=== PATIENT | female | born 1995 | race Caucasian/White ===

== ENCOUNTER 2018-06-29 19:00 | Emergency (ER) | payer SELFPAY ==
[~2018-06-29] VITALS: Ht 170.2 cm; Wt 113.4 kg
[2018-06-29] MEDS ORDERED: AMOX500C2 PO (19:37)
--- NOTE | 2018-06-29 19:38 | ED Cough/URI ---
General Chief Complaint: Cough/Cold/Flu Symptoms Stated Complaint: CONGESTED,SORE THROAT,COUGH Source: patient Exam Limitations: no limitations History of Present Illness Date Seen by Provider: Jun 29, 2018 Time Seen by Provider: 19:33 Initial Comments Patient is a 22-year-old female who presents to the emergency room accompanied by her significant other with reports of cough, sore throat, congestion for one week. She reports taking Sudafed and DayQuil without relief. She denies any fevers, shortness of breath, chest pain. Timing/Duration: week Severity/Quality: mild, dry cough Associated Symptoms: cough, nasal congestion, sore throat Allergies and Home Medications Allergies Coded Allergies: No Known Drug Allergies (Unverified , 06/29/18) Home Medications No Active Prescriptions or Reported Meds Patient Home Medication List Home Medication List Reviewed: Yes Review of Systems Review of Systems Constitutional: no symptoms reported, see HPI EENTM: see HPI, nose congestion, throat pain All Other Systems Reviewed Negative Unless Noted: Yes Past [place]-Vqotif-Uwnjot Hx Past Med/Social Hx: Reviewed Nursing Past Med/Soc Hx Patient Social History Recent Foreign Travel: No Contact w/Someone Who Travel: No Family Medical History Reviewed Nursing Family Hx Physical Exam Capillary Refill : Height: '" Weight: lbs. oz. kg; BMI Method: General Appearance: WD/WN, no apparent distress Eyes: Bilateral Eye Normal Inspection, Bilateral Eye PERRL, Bilateral Eye EOMI HEENT: PERRL/EOMI, normal ENT inspection, TMs normal, pharyngeal erythema; No tonsillar exudate Neck: non-tender, full range of motion, supple, normal inspection, carotid bruit Respiratory: chest non-tender, lungs clear, normal breath sounds, no respiratory distress, no accessory muscle use, respiratory distress Cardiovascular: normal peripheral pulses, regular rate, rhythm, no edema, no gallop, no JVD, no murmur Neurologic/Psychiatric: alert, normal mood/affect, oriented x 3 Skin: normal color, warm/dry Progress/Results/Core Measures Suspected Sepsis SIRS Temperature: Pulse: Respiratory Rate: Blood Pressure / Mean: Results/Orders My Orders Orders - KEVIN BAE Influenza A And B Antigens (06/29/18 19:32) Rapid Strep A Screen (06/29/18 19:32) Vital Signs/I&O Capillary Refill : Departure Impression Primary Impression: Pharyngitis Additional Impression: Upper respiratory infection Disposition: HOME, SELF-CARE Condition: Stable/Unchanged Departure-Patient Inst. Decision time for Depature: 19:35 Patient Instructions: Cough, Runny Nose, and the Common Cold (DC), Strep Throat (DC) Add. Discharge Instructions: Take medication as directed. Tylenol and ibuprofen as needed for pain and fever. Drink plenty of clear liquids like water. Continue to use over-the- counter antitussives, throat lozenges, DayQuil/NyQuil for symptom treatment. Follow-up with her primary care provider within 1 week for recheck. Return back to the emergency room for any worsening symptoms or concerns as needed. All discharge instructions reviewed with patient and/or family. Voiced understanding. Scripts Amoxicillin (Amoxicillin) 500 Mg Capsule 500 MG PO BID for 10 Days, #20 CAP Prov: KEVIN BAE 06/29/18 KEVIN BAE Jun 29, 2018 19:38
--- OUTSIDE RECORDS SUMMARY | 2018-06-29 20:03 | XMS REPORT | Continuity of Care Document ---
Author Author Jazmyne Lizarraga [facility] Jazmyne Lizarraga [facility] Address Unknown Phone Unavailable Care Team Providers Care Fiscal Technician Name Role Phone THIERRY RUBY DO PCP Insurance Providers Guarantor Elsa Hoskins Address [address] [place] [address] Payer [facility] Policy Number [id number] Subscriber's Name Robert Hoskins Relationship 05 Step Father Group Number [id number] Group Name [facility] Chief Complaint and Reason for Visit Chief Complaint Fall Reason for Visit [id number] Problems Active Problems Medical Problem Onset Date Status Bronchitis Unknown Acute Chronic pain of left knee Unknown Acute Chronic pain of left knee Unknown Acute Conjunctivitis unspecified Unknown Acute Epigastric pain 04/28/2012 Chronic Ingrown left big toenail Unknown Acute Knee strain Unknown Acute Left knee sprain Unknown Acute Nausea and vomiting 04/28/2012 Chronic Pharyngitis Unknown Acute Rotator cuff tendonitis Unknown Acute Rotator cuff tendonitis Unknown Acute Shoulder pain Unknown Acute Urinary tract infection Unknown Acute otalgia Unknown Acute Past Problems Medical Problem Onset Date Benzodiazepine intoxication Unknown Benzodiazepine intoxication Unknown Dizziness Unknown Head injury, closed Unknown Toothache Unknown Medications Current Home Medications Medication Dose Units Route Directions Days Qty Instructions Start Date Albuterol (Ventolin Hfa) 108 Mcg/Act Aer 108 Mcg Inhalation As Needed for Asthma 06/23/16 Azithromycin 250 Mg Tab 0 Oral Daily for Bacterial Infection 6 Tablet 2 TABS ON DAY 1, THEN 1 TAB DAILY X 4 DAYS 06/23/16 Fexofenadine Hcl (Mary Anne) 180 Mg Tab 180 Mg Oral Daily for Allergies 10/25/14 Metformin Hcl 500 Mg Tab 500 Mg Oral Twice A Day 07/22/16 Sertraline Hcl (Zoloft) 50 Mg Tab 50 Mg Oral Daily 07/22/16 Past Home Medications Medication Directions Ordered Status Azithromycin (Zithromax) 250 Mg Tab, 250 Mg Oral Daily 09/20/11 Discontinued Cephalexin 500 Mg Tab, 500 Mg Oral Daily 05/18/12 Discontinued Cyclobenzaprine Hcl (Flexeril) 10 Mg Tab, 10 Mg Oral Three Times A Day As Needed 08/11/09 Discontinued Fluticasone Propionate (Flonase 0.05% Nasal [place]) 16 Gm Naspr, 2 [place] Nasal Daily for Rhinitis 06/23/16 Discontinued Phenazopyridine Hcl (Pyridium) 100 Mg Tab, 100 Mg Oral Three Times A Day Discontinued Prednisone 20 Mg Tab, 1 Tab Oral Qd 04/20/09 Discontinued Promethazine/Codeine (Phenergan W/Codeine) 120 Ml Syrp, 5-10 Ml Oral Every 6 Hours As Needed 10/16/13 Discontinued Tramadol Hcl (Ultram) 50 Mg Tab, 50 Mg Oral Every 6 Hours As Needed 08/11/09 Discontinued Family History Relationship Condition Age at Onset Recorded Date/Time 03 Mother Family history of asthma Not Recorded 06/23/2016 2:08pm 03 Mother Family history of hypertension Not Recorded 06/23/2016 2:08pm 03 Mother Family history of type 2 diabetes mellitus Not Recorded 2015 2:08pm Social History Social History Problem Response Recorded Date/Time Onset Date Status Hx Alcohol Use No 06/23/2016 2:09pm Not Applicable Not Applicable Hx Substance Use No 06/23/2016 2:09pm Not Applicable Not Applicable Smoking Status Never smoker 07/22/2016 7:10pm Not Applicable Not Applicable Query Response Start Date Stop Date Smoking Status Never smoker Hospital Discharge Instructions No hospital discharge instructions. Plan of Care Discharge Date 07/22/16 10:10pm Disposition 01 HOME, SELF-CARE Condition at Discharge Improved/Stable Instructions/Education Provided Minor Head Injury (ED) Prescriptions See Medication Section Referrals THIERRY RUBY DO Address: [address] [place] [address] Additional Instructions/Education Please see your doctor in 3-5 days if needed. Please return to ED right away if altered mental status, vomiting, any neuro deficits, or anything concerning. Functional Status No functional status results. Allergies, Adverse Reactions, Alerts No known allergies. Immunizations No immunization records. Vital Signs Acute Vital Signs Vital Response Date/Time Blood Pressure 144/85 mm Hg 07/22/2016 9:29pm Blood Pressure Mean 104 mm Hg 07/22/2016 9:29pm Temperature (Fahrenheit) 98.6 degrees F (96.0 - 99.9) 07/22/2016 7:11pm Temperature (Calculated Celsius) 37.43708 degrees C 07/22/2016 7:11pm Temperature (Calculated Celsius) 36.59310 degrees C (36.4 - 37.5) 06/23/2016 2:11pm Temperature (Fahrenheit) 98.0 degrees F (96.0 - 99.9) 06/23/2016 2:11pm Temperature Source Oral 07/22/2016 7:11pm Pulse Pulse Rate (adult) 115 bpm (60 - 100) 06/19/2016 11:54pm Pulse Rate (adult) 113 bpm (60 - 100) 06/23/2016 2:11pm Pulse Rate: ED 89 bpm 07/22/2016 9:29pm Respiratory Rate 16 breaths per minute (10 - 20) 07/22/2016 8:22pm Respiratory Rate 16 bpm (10 - 20) 06/23/2016 2:11pm Height (Feet) 5 ft 07/22/2016 7:11pm Height (Inches) 7.0 in. 07/22/2016 7:11pm Weight (Pounds) 225.0 lbs 07/22/2016 7:11pm Height 5 ft 7 in 07/22/2016 7:11pm Weight 225 lb 07/22/2016 7:11pm Body Mass Index 35.2 kg/m^2 07/22/2016 7:11pm Ambulatory Vital Signs Vital Response Date/Time Height 5 ft 8 in 06/01/2012 4:29pm Weight 189 lbs 06/01/2012 4:29pm Temperature, Oral 97.6 degrees F 06/01/2012 4:29pm Blood Pressure 96/66 mm Hg 06/01/2012 4:29pm Pulse Rate 78 bpm 06/01/2012 4:29pm Respiration Rate 12 bpm 06/01/2012 4:29pm Body Surface Area 2.05 m2 06/01/2012 4:29pm Body Mass Index 28.7 kg/m2 06/01/2012 4:29pm Pulse Oximetry Pulse Oximetry 06/01/2012 4:29pm Results Laboratory Results Test Name Result Units Flags Reference Collection Date/Time Result Date/ Time Comments Urine Human Chorionic Gonadotropin NEGATIVE NEGATIVE 06/20/2016 12: 46am 06/20/2016 1:13am Urine Amphetamines Screen Negative NEGATIVE 06/20/2016 12:46am 2015 1:13am Urine Methamphetamines Screen Negative NEGATIVE 06/20/2016 12:46am 1:13am Urine Barbiturates Screen Negative NEGATIVE 06/20/2016 12:46am 2015 1:13am Urine Benzodiazepines Screen Negative NEGATIVE 06/20/2016 12:46am 1:13am Urine Cocaine Screen Negative NEGATIVE 06/20/2016 12:46am 06/20/2016 1:13am Urine Methadone Screen Negative NEGATIVE 06/20/2016 12:46am 2015 1:13am Urine Opiates Screen Negative NEGATIVE 06/20/2016 12:46am 06/20/2016 1:13am Urine Phencyclidine Screen Negative NEGATIVE 06/20/2016 12:46am 06/20 1:13am Urine Propoxyphene Screen Negative NEGATIVE 06/20/2016 12:46am 2015 1:13am Ur Tetrahydrocannabinol (THC) Scrn Negative NEGATIVE 06/20/2016 12: 46am 06/20/2016 1:13am Ur Tricyclic Antidepressants Screen Negative NEGATIVE 06/20/2016 12: 46am 06/20/2016 1:13am Urine Color YELLOW 06/20/2016 5:50pm 06/20/2016 5:58pm Urine Appearance SL CLOUDY 06/20/2016 5:50pm 06/20/2016 5:58pm Urine Glucose (UA) NEGATIVE NEGATIVE 06/20/2016 5:50pm 06/20/2016 5: 58pm Urine Bilirubin NEGATIVE NEGATIVE 06/20/2016 5:50pm 06/20/2016 5: 58pm Urine Ketones NEGATIVE NEGATIVE 06/20/2016 5:50pm 06/20/2016 5:58pm Urine Specific [place] 1.020 1.005-1.030 06/20/2016 5:50pm 2015 5:58pm Urine Occult Blood NEGATIVE NEGATIVE 06/20/2016 5:50pm 06/20/2016 5: 58pm Urine pH 8.5 4.5-8.0 06/20/2016 5:50pm 06/20/2016 5:58pm Urine Protein NEGATIVE NEGATIVE 06/20/2016 5:50pm 06/20/2016 5:58pm Urine Urobilinogen 0.2 E.U./dL 0.2-1.0 06/20/2016 5:50pm 06/20/2016 5: 58pm Urine Nitrate NEGATIVE NEGATIVE 06/20/2016 5:50pm 06/20/2016 5:58pm Urine Leukocyte Esterase 1+ H NEGATIVE 06/20/2016 5:50pm 06/20/2016 5: 58pm Urine RBC 0-1 /hpf NONE 06/20/2016 5:50pm 06/20/2016 6:03pm Urine WBC 1-3 /hpf NONE 06/20/2016 5:50pm 06/20/2016 6:03pm Urine Epithelial Cells MANY /lpf 06/20/2016 5:50pm 06/20/2016 6:03pm Urine Bacteria 2+ /hpf H NONE 06/20/2016 5:50pm 06/20/2016 6:03pm THIS SPECIMEN MEETS MEDICAL STAFF CRITERIA FOR A URINE CULTURE. A CULTURE HAS BEEN SET. Urine Mucus TRACE /lpf NONE 06/20/2016 5:50pm 06/20/2016 6:03pm Microbiology Results Procedure Source Organism/Result Collection Date/Time Result Date/Time Result Status Urine Culture Urine,Clean Catch >100,000 CFU/ML MIXED BODY MYRIAM AFTER 2 DAYS 06/20/2016 5:50pm 06/22/2016 11:27am Final Procedures No known history of procedures. Encounters Encounter Location Arrival/Admit Date Discharge/Depart Date Attending Provider Departed Emergency Room [facility] 07/22/16 7:09pm 10:10pm DAISY TANG M.D. Departed Clinic [facility] 06/23/16 2:00pm 06/23/16 2: 35pm THERESA GOMEZ APRN Departed Emergency Room [facility] 06/20/16 4:52pm 6:49pm HEMANT BRUNSON D.O. Departed Emergency Room [facility] 06/19/16 11:39pm 2:33am ADDI WINTER M.D. Departed Emergency Room [facility] 02/02/16 11:44pm 12:26am DMITRY GUNN M.D. Registered Referred [facility] 01/30/15 11:50am RAH MONTE M.D. Departed Emergency Room [facility] 10/29/14 10:35am 11:51am BENJIE LOVELACE M.D. Departed Emergency Room [facility] 10/25/14 10:55pm 12:30am JAMES HERNANDEZ M.D. Departed Emergency Room [facility] 06/08/14 3:38am 4:15am OLIVER MAIN M.D. Registered Referred [facility] 02/12/14 6:55pm THIERRY RUBY DO Departed Emergency Room [facility] 02/08/14 1:06pm 2:06pm BENJIE LOVELACE M.D. Departed Emergency Room [facility] 02/07/14 12:37am 1:13am MARTÍN DORAN M.D. Discharged Recurring [facility] 01/25/14 1:18pm 03/14/14 11:59pm RAH MONTE M.D. Discharged Recurring [facility] 01/25/14 1:11pm 03/14/14 11:59pm RAH MONTE M.D. Recent Diagnosis
--- OUTSIDE RECORDS SUMMARY | 2018-06-29 20:04 | XMS REPORT | Continuity of Care Document ---
Author Author Jazmyne Lizarraga [facility] Jazmyne Lizarraga [facility] Address Unknown Phone Unavailable Care Team Providers Care Regional Marketing Manager Name Role Phone THIERRY GLEASON DO PCP Insurance Providers Guarantor Elsa Hoskins Address [address] [place] [address] Payer [facility] Policy Number [id number] Subscriber's Name Robert Hoskins Relationship 05 Step Father Group Number [id number] Group Name [facility] Problems Active Problems Medical Problem Onset Date [...] Mcg Inhalation As Needed for Asthma 06/23/16 Metformin Hcl 500 Mg Tab 500 Mg Oral Twice A Day 07/22/16 Ondansetron (Zofran Odt) 4 Mg Tab 4 Mg Oral Every 6 Hours as needed for Nausea 15 Tablet 08/09/16 Sertraline Hcl (Zoloft) 50 Mg Tab 50 Mg Oral Daily 07/22/16 Past Home Medications Medication Directions Ordered Status Azithromycin 250 Mg Tab, 0 Oral Daily for Bacterial Infection 06/23/16 Discontinued Azithromycin (Zithromax) 250 Mg Tab, 250 Mg Oral Daily 09/20/11 Discontinued Cephalexin 500 Mg Tab, 500 Mg Oral Daily 05/18/12 Discontinued Cyclobenzaprine Hcl (Flexeril) 10 Mg Tab, 10 Mg Oral Three Times A Day As Needed 08/11/09 Discontinued Fexofenadine Hcl (Mary Anne) 180 Mg Tab, 180 Mg Oral Daily for Allergies Discontinued Fluticasone Propionate (Flonase 0.05% Nasal [place]) 16 Gm Naspr, 2 [place] Nasal Daily for Rhinitis 06/23/16 Discontinued Phenazopyridine [...] Onset Date Status Hx Alcohol Use No 08/09/2016 11:16am Not Applicable Not Applicable Hx Substance Use No 08/09/2016 11:16am Not Applicable Not Applicable Smoking Status Never smoker 08/09/2016 11:16am Not Applicable Not Applicable Query Response Start Date Stop Date Smoking Status Never smoker Hospital Discharge Instructions Discharge Instructions Provider Instructions 1. Sips of fluid and chips of ice, popsicles, Gatorade, Viktor Aid, Jello. No big drinks but sip to keep hydrated and enough to keep urine clear. 2. Take nausea medication as prescribed. 3. Rest in a cool room. 4. [place] diet, No fatty, greasy, spicy or hard to digest foods. 5. If you develop blood in your vomit or worsening pain please seek emergent care. 5. If symptoms worsen or do not resolve by mid week, please follow up with primary care provider for further evaluation. Dismiss home You were seen today by PURVI GROVE APRN Follow up with Primary Care Physician in 3-7 days PCP Information Thierry Gleason DO [address] [place] [address] Plan(s) based on screenings Calculated Body Mass Index: 38.10 BMI Follow-up plan: BMI is above normal, follow-up with Primary Care Provider Blood Pressure #1 Blood Pressure Systolic: 142 mm Hg Blood Pressure Diastolic: 92 mm Hg Preventative Blood Pressure Follow-up plan: BP is Hypertensive, follow-up with Primary Care Provider Plan of Care Discharge Date 08/09/16 11:57am Instructions/Education Provided Acute Nausea and Vomiting (ED) Prescriptions See Medication Section Functional Status No functional status results. Allergies, Adverse Reactions, Alerts No known allergies. Immunizations No immunization records. Vital Signs Acute Vital Signs Vital Response Date/Time Blood Pressure 142/92 mm Hg 08/09/2016 11:17am Blood Pressure Mean 109 mm Hg 08/09/2016 11:17am Temperature (Fahrenheit) 98.6 degrees F (96.0 - 99.9) 07/22/2016 7:11pm Temperature (Calculated Celsius) 37.71747 degrees C 07/22/2016 7:11pm Temperature (Calculated Celsius) 36.22486 degrees C (36.4 - 37.5) 08/09/2016 11:17am Temperature (Fahrenheit) 97.9 degrees F (96.0 - 99.9) 08/09/2016 11:17am Temperature Source Oral 07/22/2016 7:11pm Pulse Pulse Rate (adult) 115 bpm (60 - 100) 06/19/2016 11:54pm Pulse Rate (adult) 86 bpm (60 - 100) 08/09/2016 11:17am Pulse Rate: ED 89 bpm 07/22/2016 9:29pm Respiratory Rate 16 breaths per minute (10 - 20) 07/22/2016 8:22pm Respiratory Rate 12 bpm (10 - 20) 08/09/2016 11:17am Height (Feet) 5 ft 08/09/2016 11:17am Height (Inches) 7.0 in. 08/09/2016 11:17am Weight (Pounds) 242.8 lbs 08/09/2016 11:17am Height 5 ft 7 in 08/09/2016 11:17am Weight 242.80 lb 08/09/2016 11:17am Body Mass Index 38.0 kg/m^2 08/09/2016 11:17am Ambulatory Vital Signs Vital Response Date/Time Height [...] NEGATIVE 06/20/2016 5:50pm 06/20/2016 5:58pm Urine Specific [place] 1.020 1.005-1.030 06/20/2016 5:50pm 2015 5:58pm Urine [...] Arrival/Admit Date Discharge/Depart Date Attending Provider Departed Clinic [facility] 08/09/16 10:42am 08/09/16 11: 57am PURVI GROVE APPLE Departed Emergency Room [facility] 07/22/16 7:09pm 10:10pm DAISY TANG M.D. Departed Clinic [facility] 06/23/16 2:00pm 06/23/16 2: 35pm THERESA GOMEZ APRN Departed Emergency Room [facility] 06/20/16 4:52pm 6:49pm HEMANT BRUNSON D.O. Departed Emergency Room [facility] 06/19/16 11:39pm 2:33am ADDI WINTER M.D. Departed Emergency Room [facility] 02/02/16 11:44pm 12:26am DMITRY GUNN M.D. Registered Referred [facility] 01/30/15 11:50am RAH MONTE M.D. Departed Emergency Room [facility] 10/29/14 10:35am 11:51am BENJIE LOVELACE M.D. Departed Emergency Room [facility] 10/25/14 10:55pm 12:30am JAMES HERNANDEZ M.D. Departed Emergency Room [facility] 06/08/14 3:38am 4:15am OLIVER MAIN M.D. Registered Referred [facility] 02/12/14 6:55pm THIERRY GLEASON DO Departed Emergency Room [facility] 02/08/14 1:06pm 2:06pm BENJIE LOVELACE M.D. Departed Emergency Room [facility] 02/07/14 12:37am 1:13am MARTÍN DORAN M.D. Discharged [facility] 01/25/14 1:18pm 03/14/14 11:59pm RAH MONTE M.D. Discharged Rec[facility]ring [facility] 01/25/14 1:11pm 03/14/14 11:59pm RAH MONTE M.D.
--- OUTSIDE RECORDS SUMMARY | 2018-06-29 20:04 | XMS REPORT | Continuity of Care Document ---
Author Author Jazmyne Lizarraga [facility] Jazmyne Lizarraga [facility] Address Unknown Phone Unavailable Care Team Providers Care [place] Nurse Name Role Phone THIERRY RUBY DO PCP Insurance Providers Guarantor Elsa Hoskins Address [address] [place] [address] Payer [employer] Policy Number [id number] Subscriber's Name Robert Hoskins Relationship 03 Father Group Number [id number] Group Name [facility] Chief Complaint and Reason for Visit Chief Complaint Medical Problem Minor Reason for Visit Benzodiazepine intoxication Problems Active Problems Medical Problem Onset Date [...] Medical Problem Onset Date Benzodiazepine intoxication Unknown Toothache Unknown Medications Current Home Medications Medication Dose Units Route Directions Days Qty Instructions Start Date Fexofenadine Hcl (Mary Anne) 180 Mg Tab 180 Mg Oral Daily 10/25/14 Meloxicam (Mobic) 15 Mg Tab 15 Mg Oral Daily 06/08/14 Past Home Medications Medication Directions Ordered Status Azithromycin (Zithromax) 250 Mg Tab, 250 Mg Oral Daily 09/20/11 Discontinued Cephalexin 500 Mg Tab, 500 Mg Oral Daily 05/18/12 Discontinued Cyclobenzaprine Hcl (Flexeril) 10 Mg Tab, 10 Mg Oral Three Times A Day As Needed 08/11/09 Discontinued Phenazopyridine Hcl (Pyridium) 100 Mg Tab, 100 Mg Oral Three Times A Day Discontinued Prednisone 20 Mg Tab, 1 Tab Oral Qd 04/20/09 Discontinued Promethazine/Codeine (Phenergan W/Codeine) 120 Ml Syrp, 5-10 Ml Oral Every 6 Hours As Needed 10/16/13 Discontinued Tramadol Hcl (Ultram) 50 Mg Tab, 50 Mg Oral Every 6 Hours As Needed 08/11/09 Discontinued Social History Social History Problem Response Recorded Date/Time Onset Date Status Hx Alcohol Use No 05/17/2012 1:43pm Not Applicable Not Applicable Hx Substance Use No 05/17/2012 1:43pm Not Applicable Not Applicable Smoking Status Never smoker 06/19/2016 11:45pm Not Applicable Not Applicable Query Response Start Date Stop Date Smoking Status Never smoker Hospital Discharge Instructions No hospital discharge instructions. Plan of Care Discharge Date 06/20/16 2:33am Disposition 01 HOME, SELF-CARE Condition at Discharge Stable Instructions/Education Provided Benzodiazepine Abuse (ED) Generalized Anxiety Disorder (ED) Prescriptions See Medication Section Referrals THIERRY RUBY DO Address: [address] [place] [address] Additional Instructions/Education 1. Followup at [facility]. Call for an appointment on Tuesday morning. 2. Return to ER if any worsening symptoms, any recurrence of suicidal thoughts or ideation, any other concerns. 3. Avoid use of medications which are not prescribed to you. Functional Status No functional status results. Allergies, Adverse Reactions, Alerts No known allergies. Immunizations No immunization records. Vital Signs Acute Vital Signs Vital Response Date/Time Blood Pressure 99/71 mm Hg 06/20/2016 2:23am Blood Pressure Mean 80 mm Hg 06/20/2016 2:23am Temperature (Fahrenheit) 98.5 degrees F (96.0 - 99.9) 06/19/2016 11:39pm Temperature (Calculated Celsius) 36.89919 degrees C 06/19/2016 11:39pm Temperature Source Oral 06/19/2016 11:39pm Pulse Pulse Rate (adult) 115 bpm (60 - 100) 06/19/2016 11:54pm Pulse Rate: ED 74 bpm 06/20/2016 2:23am Respiratory Rate 16 breaths per minute (10 - 20) 06/20/2016 2:23am Height (Feet) 5 ft 06/19/2016 11:39pm Height (Inches) 7.0 in. 06/19/2016 11:39pm Weight (Pounds) 256.0 lbs 06/19/2016 11:39pm Height 5 ft 7 in 06/19/2016 11:39pm Weight 256 lb 06/19/2016 11:39pm Body Mass Index 40.1 kg/m^2 06/19/2016 11:39pm Ambulatory Vital Signs Vital Response Date/Time Height [...] Negative NEGATIVE 06/20/2016 12: 46am 06/20/2016 1:13am Procedures No known history of procedures. Encounters Encounter Location Arrival/Admit Date Discharge/Depart Date Attending Provider Departed Emergency Room [facility] 06/19/16 11:39pm 2:33am ADDI WINTER M.D. Departed Emergency Room [facility] 02/02/16 11:44pm 12:26am DMITRY GUNN M.D. Registered Referred [facility] 01/30/15 11:50am RAH MONTE M.D. Departed Emergency Room [facility] 10/29/14 10:35am 11:51am BENJIE LOVELACE M.D. Departed Emergency Room [facility] 10/25/14 10:55pm 12:30am JAMES HERNANDEZ M.D. Departed Emergency Room [facility] 06/08/14 3:38am 4:15am OLIVER MAIN M.D. Registered Referred [facility] 02/12/14 6:55pm THIERRY RUBY DO Departed Emergency Room [facility] 02/08/14 1:06pm 2:06pm BENJIE LOVLEACE M.D. Departed Emergency Room [facility] 02/07/14 12:37am 1:13am MARTÍN DORAN M.D. Discharged Recurring [facility] 01/25/14 1:18pm 03/14/14 11:59pm RAH MONTE M.D. Discharged Recurring [facility] 01/25/14 1:11pm 08/07/14 11:59pm RAH MONTE M.D. Departed Emergency Room [facility] 10/16/13 2:52pm 3:55pm OLIVER MAIN M.D. [facility] 10/13/13 7:32pm 8:03pm JAMES HERNANDEZ M.D. Recent Diagnosis
--- OUTSIDE RECORDS SUMMARY | 2018-06-29 20:04 | XMS REPORT | Continuity of Care Document ---
Author Author Jazmyne Lizarraga [facility] Jazmyne Lizarraga [facility] Address Unknown Phone Unavailable Care Team Providers Care Technology Methodology Consultant Name Role Phone THIERRY GLEASON DO PCP Insurance Providers Guarantor Elsa Hoskins Address [address] [place] [address] Payer [facility] Policy Number [id number] Subscriber's Name Robert Hoskins Relationship 05 Step Father Group Number [id number] Group Name [facility] Problems Active Problems Medical Problem Onset Date [...] intoxication Unknown Benzodiazepine intoxication Unknown Dizziness Unknown Toothache Unknown Medications Current Home Medications Medication Dose Units Route Directions Days Qty Instructions Start Date Albuterol (Ventolin Hfa) 108 Mcg/Act Aer 108 Mcg Inhalation As Needed for Asthma 06/23/16 Azithromycin 250 Mg Tab 0 Oral Daily for Bacterial Infection 6 Tablet 2 TABS ON DAY 1, THEN 1 TAB DAILY X 4 DAYS 06/23/16 Benzonatate (Tessalon Perles) 100 Mg Cap 100 Mg Oral Three Times A Day for Cough 15 Capsule 06/23/16 Fexofenadine Hcl (Mary Anne) 180 Mg Tab 180 Mg Oral Daily for Allergies 10/25/14 Fluticasone Propionate (Flonase 0.05% Nasal [place]) 16 Gm Naspr 2 [place] Nasal Daily for Rhinitis 14 Days 1 Btl 06/23/16 Meloxicam (Mobic) 15 Mg Tab 15 Mg Oral Daily for Knee Pain Past Home Medications Medication Directions Ordered Status [...] Applicable Not Applicable Smoking Status Never smoker 06/23/2016 2:09pm Not Applicable Not Applicable Query Response Start Date Stop Date Smoking Status Never smoker Hospital Discharge Instructions Discharge Instructions Provider Instructions Dismiss home You were seen today by THERESA GOMEZ APRN 1. Drink plenty of fluids. 2. If symptoms are no better by Tuesday or Tuesday start taking antibiotic and complete entire course. 3. Tessalon Perles up to 3 times a day for cough 4. Humidifier at bedside may be beneficial. 5. Tylenol or Motrin as needed for discomfort, use as directed. 6. Suggest taking Claritin-D to help dry up secretions. PCP Information Thierry Gleason DO [address] [place] [address] Plan(s) based on screenings Calculated Body Mass Index: 40.66 BMI Follow-up plan: BMI is above normal, follow-up with Primary Care Provider Blood Pressure #1 Blood Pressure Systolic: 118 mm Hg Blood Pressure Diastolic: 82 mm Hg Preventative Blood Pressure Follow-up plan: BP is Pre-Hypertensive, follow-up with Primary Care Provider Plan of Care Discharge Date 06/23/16 2:35pm Instructions/Education Provided Acute Bronchitis (ED) Prescriptions See Medication Section Functional Status No functional status results. Allergies, Adverse Reactions, Alerts No known allergies. Immunizations No immunization records. Vital Signs Acute Vital Signs Vital Response Date/Time Blood Pressure 118/82 mm Hg 06/23/2016 2:11pm Blood Pressure Mean 94 mm Hg 06/23/2016 2:11pm Temperature (Fahrenheit) 98.1 degrees F (96.0 - 99.9) 06/20/2016 4:53pm Temperature (Calculated Celsius) 36.16639 degrees C 06/20/2016 4:53pm Temperature (Calculated Celsius) 36.76391 degrees C (36.4 - 37.5) 06/23/2016 2:11pm Temperature (Fahrenheit) 98.0 degrees F (96.0 - 99.9) 06/23/2016 2:11pm Temperature Source Oral 06/20/2016 4:53pm Pulse Pulse Rate (adult) 115 bpm (60 - 100) 06/19/2016 11:54pm Pulse Rate (adult) 113 bpm (60 - 100) 06/23/2016 2:11pm Pulse Rate: ED 86 bpm 06/20/2016 6:49pm Respiratory Rate 18 breaths per minute (10 - 20) 06/20/2016 6:08pm Respiratory Rate 16 bpm (10 - 20) 06/23/2016 2:11pm Height (Feet) 5 ft 06/23/2016 2:11pm Height (Inches) 7.1 in. 06/23/2016 2:11pm Weight (Pounds) 260.0 lbs 06/23/2016 2:11pm Height 5 ft 7.1 in 06/23/2016 2:11pm Weight 260 lb 06/23/2016 2:11pm Body Mass Index 40.6 kg/m^2 06/23/2016 2:11pm Ambulatory Vital Signs Vital Response Date/Time Height [...] NEGATIVE 06/20/2016 5:50pm 06/20/2016 5:58pm Urine Specific [place] 1.020 1.005-1.030 06/20/2016 5:50pm 2015 5:58pm Urine [...] Date Discharge/Depart Date Attending Provider Departed Clinic [facility] 06/23/16 2:00pm 06/23/16 2: 35pm THERESA GOMEZ APRN Departed Emergency Room [facility] 06/20/16 4:52pm 6:49pm HEMANT BRUNSON D.O. Departed Emergency Room [facility] 06/19/16 11:39pm 2:33am ADDI WINTER M.D. Departed Emergency Room [facility] 02/02/16 11:44pm 12:26am DMITRY GUNN M.D. Registered Referred [facility]. [facility] 01/30/15 11:50am RAH MONTE M.D. Departed Emergency Room [facility] 10/29/14 10:35am 11:51am BENJIE LOVELACE M.D. Departed Emergency Room [facility] 10/25/14 10:55pm 12:30am JAMES HERNANDEZ M.D. Departed Emergency Room [facility] 06/08/14 3:38am 4:15am OLIVER MAIN M.D. Registered Referred [facility] 02/12/14 6:55pm THIERRY GLEASON DO Departed Emergency Room [facility] 02/08/14 1:06pm 2:06pm BENJIE LOVELACE M.D. Departed Emergency Room [facility] 02/07/14 12:37am 1:13am MARTÍN DORAN M.D. Discharged Recurring [facility] 01/25/14 1:18pm 03/14/14 11:59pm RAH MONTE M.D. Discharged Recurring [facility] 01/25/14 1:11pm 03/14/14 11:59pm RAH MONTE M.D. Departed Emergency Room [facility] 10/16/13 2:52pm 3:55pm OLIVER MAIN M.D. Departed Emergency Room Jazmyne Lizarraga [facility] 10/13/13 7:32pm 8:03pm JAMES HERNANDEZ M.D.
--- OUTSIDE RECORDS SUMMARY | 2018-06-29 20:04 | XMS REPORT | Continuity of Care Document ---
Author Author Jazmyne Lizarraga [facility] Jazmyne Lizarraga [facility] Address Unknown Phone Unavailable Care Team Providers Care Amplifier Mechanic Name Role Phone THIERRY RUBY DO PCP Insurance Providers Guarantor Elsa Hoskins Address [address] [place] [address] Payer Self Pay Insurance Subscriber's Name Elsa Hoskins Relationship 01 Self / Same As Patient Chief Complaint and Reason for Visit Chief Complaint Dizziness Reason for Visit Dizziness Benzodiazepine intoxication Problems Active Problems Medical Problem [...] Applicable Not Applicable Smoking Status Never smoker 06/20/2016 4:57pm Not Applicable Not Applicable Query Response Start Date Stop Date Smoking Status Never smoker Hospital Discharge Instructions No hospital discharge instructions. Plan of Care Discharge Date 06/20/16 6:49pm Disposition 01 HOME, SELF-CARE Condition at Discharge Stable Instructions/Education Provided Vertigo (ED) Prescriptions See Medication Section Referrals THIERRY RUBY DO Address: [address] [id number] Additional Instructions/Education Followup with [facility] in [place]. Call for appointment. [phone] Return to ER if worsening symptoms, other new concerns. Take your medications only as prescribed. Rest and drink plenty of fluids Functional Status No functional status results. Allergies, Adverse Reactions, Alerts No known allergies. Immunizations No immunization records. Vital Signs Acute Vital Signs Vital Response Date/Time Blood Pressure 107/69 mm Hg 06/20/2016 6:49pm Blood Pressure Mean 82 mm Hg 06/20/2016 6:49pm Temperature (Fahrenheit) 98.1 degrees F (96.0 - 99.9) 06/20/2016 4:53pm Temperature (Calculated Celsius) 36.77634 degrees C 06/20/2016 4:53pm Temperature Source Oral 06/20/2016 4:53pm Pulse Pulse Rate (adult) 115 bpm (60 - 100) 06/19/2016 11:54pm Pulse Rate: ED 86 bpm 06/20/2016 6:49pm Respiratory Rate 18 breaths per minute (10 - 20) 06/20/2016 6:08pm Height (Feet) 5 ft 06/20/2016 4:53pm Height (Inches) 7.0 in. 06/20/2016 4:53pm Weight (Pounds) 255.0 lbs 06/20/2016 4:53pm Height 5 ft 7 in 06/20/2016 4:53pm Weight 255 lb 06/20/2016 4:53pm Body Mass Index 39.9 kg/m^2 06/20/2016 4:53pm Ambulatory Vital Signs Vital Response Date/Time Height [...] NEGATIVE 06/20/2016 5:50pm 06/20/2016 5:58pm Urine Specific [place] 1.020 1.005-1.030 06/20/2016 5:50pm 2015 5:58pm Urine [...] TRACE /lpf NONE 06/20/2016 5:50pm 06/20/2016 6:03pm Procedures No known history of procedures. Encounters Encounter Location Arrival/Admit Date Discharge/Depart Date Attending Provider Departed Emergency Room [facility] 06/20/16 4:52pm 6:49pm HEMANT BRUNSON D.O. Departed Emergency Room [facility] 06/19/16 11:39pm 2:33am ADDI WINTER M.D. Departed Emergency Room [facility] 02/02/16 11:44pm 12:26am DMITRY GUNN M.D. Registered Referred [facility] 01/30/15 11:50am RAH MONTE M.D. Departed Emergency Room [facility] 10/29/14 10:35am 11:51am BENJIE LOVELACE M.D. Departed Emergency Room [facility] 10/25/14 10:55pm 12:30am JAMES HERNANDEZ M.D. Departed Emergency Room [facility] 06/08/14 3:38am 4:15am OLIVER MAIN M.D. Registered Referred [facility] 02/12/14 6:55pm THIERRY RUBY DO Departed Emergency Room [facility] 02/08/14 1:06pm 2:06pm BENJIE LOVELACE M.D. Departed Emergency Room [facility] 02/07/14 12:37am 1:13am MARTÍN DORAN M.D. Discharged Recurring [facility] 01/25/14 1:18pm 03/14/14 11:59pm RAH MONTE M.D. Discharged Recurring [facility] 01/25/14 1:11pm 03/14/14 11:59pm RAH MONTE M.D. Departed Emergency Room [facility] 10/16/13 2:52pm 3:55pm OLIVER MAIN M.D. Departed Emergency Room [facility] 10/13/13 7:32pm 8:03pm JAMES HERNANDEZ M.D. Recent Diagnosis Dizziness
--- OUTSIDE RECORDS SUMMARY | 2018-06-29 20:05 | XMS REPORT | Continuity of Care Document ---
Author Author Jazmyne Lizarraga [facility] Jazmyne Lizarraga [facility] Address Unknown Phone Unavailable Care Team Providers Care Knuckle Bender Name Role Phone THIERRY RUBY DO PCP Insurance Providers Payer Name Policy Number Subscriber Name Relationship Providers Care Network [id number] GatoRobert mathur 03 Father Chief Complaint and Reason for Visit Chief Complaint Arm Pain Reason for Visit [id number] Problems Medical Problems Problem Onset Date Status Epigastric pain 04/28/2012 Active Nausea and vomiting 04/28/2012 Active Urinary tract infection Unknown Active Pharyngitis Unknown Active otalgia Unknown Active Conjunctivitis unspecified Unknown Active Bronchitis Unknown Active Shoulder pain Unknown Active Rotator cuff tendonitis Unknown Active Medications Medication Dose Route Sig Days/Qty Instructions Order Date Discontinued Date Status Prednisone 1 Tab PO QD 4 Qty 04/20/09 04/28/12 Discontinued Tramadol Hcl 50 Mg PO Every 6 hours as needed 10 Qty FOR PAIN 08/11/09 04/28/12 Discontinued Cyclobenzaprine Hcl 10 Mg PO Three times a day as needed 15 Qty 04/28/12 Discontinued Azithromycin 250 Mg PO DAILY 4 Days 09/20/11 04/28/12 Discontinued Loratadine 5 Mg PO 05/17/12 Active Levonorgestrel & Eth Estradiol 1 X PO 05/17/12 Active Cephalexin 500 Mg PO DAILY 05/18/12 06/01/12 Discontinued Trazodone Hcl 150 Mg PO NEEDED 08/06/13 Active Phenazopyridine Hcl 100 Mg PO THREE TIMES A DAY 3 Days 07/23/13 Discontinued Fluticasone Propionate 2 Spy NA DAILY 1 Qty 09/07/13 Active Ibuprofen 600 Mg PO Every 6 hours as needed 20 Qty 09/07/13 Active Promethazine/Codeine 5-10 Ml PO Every 6 hours as needed 3 Days 10/20/13 Discontinued Metformin Hcl 500 Mg PO TWICE A DAY 02/07/14 Active Ibuprofen 800 Mg PO THREE TIMES A DAY 10 Qty 02/07/14 Active Oxycodone/Acetaminophen 1 Tab PO Q6H PRN 12 Qty 02/08/14 Active Cyclobenzaprine Hcl 10 Mg PO THREE TIMES A DAY 15 Qty 02/08/14 Active Social History Social History Problem Response Recorded Date/Time Hx Alcohol Use No 05/17/2012 1:43pm Hx Substance Use No 05/17/2012 1:43pm Smoking Status Never smoker 02/08/2014 1:08pm Query Response Start Date Stop Date Smoking Status Never smoker Hospital Discharge Instructions No hospital discharge instructions. Plan of Care Discharge Date 02/08/14 2:06pm Disposition 01 HOME, SELF-CARE Condition at Discharge Stable Instructions/Education Provided Rotator Cuff Tendinitis (ED) Prescriptions See Medications Section Follow-up Orders Gallbladder Sonogram Referrals THIERRY RUBY DO Functional Status No functional status results. Allergies, Adverse Reactions, Alerts Allergen Type Severity Reaction Status Last Updated No Known Allergies Active 02/07/14 Immunizations No immunization records. Vital Signs Acute Vital Signs Vital Response Date/Time Blood Pressure 119/93 mm Hg 02/08/2014 2:05pm Blood Pressure Mean 102 mm Hg 02/08/2014 2:05pm Temperature Source 02/08/2014 2:05pm Pulse 02/08/2014 2:05pm Pulse Rate: ED 104 bpm 02/08/2014 2:05pm Respiratory Rate 16 breaths per minute (10 - 20) 02/08/2014 2:05pm Ambulatory Vital Signs Vital Response Date/Time Height 5 ft 8 in 06/01/2012 4:29pm Weight 189 lbs 06/01/2012 4:29pm Temperature, Oral 97.6 degrees F 06/01/2012 4:29pm Blood Pressure 96/66 mm Hg 06/01/2012 4:29pm Pulse Rate 78 bpm 06/01/2012 4:29pm Respiration Rate 12 bpm 06/01/2012 4:29pm Body Surface Area 2.05 m2 06/01/2012 4:29pm Body Mass Index 28.7 kg/m2 06/01/2012 4:29pm Results Test Source Date Result Interp. Ref. Range Comments Vaginitis Screen Culture Cervix March 16, 2013 2:55am Group A Streptococcus Screen (SUZANNA) Throat March 07, 2013 7:38pm Urine Culture Urine,Clean Catch July 23, 2013 12:30am Procedures Procedure Status Date Provider(s) THER/PROPH/DIAG INJ IV PUSH completed 03/13/13 DAMON BERNAL DO THER/PROPH/DIAG IV INF INIT completed 03/15/13 BENJIE LOVELACE M.D. TX/PRO/DX INJ NEW DRUG ADDON completed 03/15/13 BENJIE LOVELACE M.D. Encounters Encounter Location Date/Time Departed Emergency Room [facility] 02/08/14 1:06pm Departed Emergency Room [facility] 02/07/14 12:37am Registered Recurring [facility] 01/28/14 3:07pm Registered Recurring [facility] 01/28/14 3:07pm Departed Emergency Room [facility] 10/16/13 2:52pm Departed Emergency Room [facility] 10/13/13 7:32pm Departed Emergency Room [facility] 09/07/13 9:10am Departed Emergency Room [facility] 07/23/13 12:09am Departed Emergency Room [facility] 03/15/13 11:36pm Departed Emergency Room [facility] 03/14/13 12:58am Departed Emergency Room [facility] 03/13/13 4:24am Recent Diagnosis
--- OUTSIDE RECORDS SUMMARY | 2018-06-29 20:05 | XMS REPORT | Continuity of Care Document ---
Author Author Jazmyne Lizarraga [facility] Jazmyne Lizarraga [facility] Address Unknown Phone Unavailable Care Team Providers Care Hardware Press Operator Name Role Phone THIERRY RUBY DO PCP Insurance Providers Guarantor Elsa Hoskins Address [address] [place] [address] Payer Other1 Policy Number [id number] Subscriber's Name Robert Hoskins Relationship 03 Father Group Number [id number] Group Name [facility] Chief Complaint and Reason for Visit Chief Complaint Facial Pain Reason for Visit Toothache Problems Active Problems Medical Problem Onset Date [...] Acute Past Problems Medical Problem Onset Date Toothache Unknown Medications Current Home Medications Medication Dose Units Route Directions Days Qty Instructions Start Date Amoxicillin/Clavulanate Potas (Augmentin 875 Mg) 875 Mg Tab 875 Mg Oral Twice A Day for Bacterial Infection 14 Tablet 02/03/16 Fexofenadine Hcl (Mary Anne) 180 Mg Tab 180 Mg Oral Daily 10/25/14 Levonorgestrel & Eth Estradiol (Aviane) Tab 1 X Oral 05/17/12 Meloxicam (Mobic) 15 Mg Tab 15 Mg Oral Daily 06/08/14 Oxycodone/Acetaminophen (Percocet 5/325) 1 Tab/1 Un Tab 1-2 Ea Oral Q4- 6HRPRN as needed for Pain 15 Tablet 02/03/16 Past Home Medications Medication Directions Ordered Status [...] Applicable Not Applicable Smoking Status Never smoker 02/02/2016 11:48pm Not Applicable Not Applicable Query Response Start Date Stop Date Smoking Status Never smoker Hospital Discharge Instructions No hospital discharge instructions. Plan of Care Discharge Date 02/03/16 12:26am Disposition 01 HOME, SELF-CARE Condition at Discharge Stable Instructions/Education Provided Dental Caries (ED) Prescriptions See Medication Section Referrals THIERRY RUBY DO Address: [address] [address] Additional Instructions/Education take meds call dental school or oral surgeon for follow up Functional Status No functional status results. Allergies, Adverse Reactions, Alerts No known allergies. Immunizations No immunization records. Vital Signs Acute Vital Signs Vital Response Date/Time Blood Pressure 132/86 mm Hg 02/02/2016 11:45pm Blood Pressure Mean 101 mm Hg 02/02/2016 11:45pm Temperature (Fahrenheit) 97.7 degrees F (96.0 - 99.9) 02/02/2016 11:45pm Temperature (Calculated Celsius) 36.43089 degrees C 02/02/2016 11:45pm Temperature Source Oral 02/02/2016 11:45pm Pulse Pulse Rate: ED 81 bpm 02/02/2016 11:45pm Respiratory Rate 16 breaths per minute (10 - 20) 10/29/2014 11:50am Height (Feet) 5 ft 02/02/2016 11:45pm Height (Inches) 7.0 in. 02/02/2016 11:45pm Weight (Pounds) 250.0 lbs 02/02/2016 11:45pm Height 5 ft 7 in 02/02/2016 11:45pm Weight 250 lb 02/02/2016 11:45pm Body Mass Index 39.2 kg/m^2 02/02/2016 11:45pm Ambulatory Vital Signs Vital Response Date/Time Height [...] Collection Date/Time Result Date/ Time Comments Urine Color YELLOW 07/23/2013 12:30am 07/23/2013 12:58am Urine Appearance CLOUDY 07/23/2013 12:30am 07/23/2013 12:58am Urine Glucose (UA) NEGATIVE NEGATIVE 07/23/2013 12:30am 07/23/2013 12 :58am Urine Bilirubin NEGATIVE NEGATIVE 07/23/2013 12:30am 07/23/2013 12: 58am Urine Ketones NEGATIVE NEGATIVE 07/23/2013 12:30am 07/23/2013 12: 58am Urine Specific [place] 1.025 1.005-1.030 07/23/2013 12:30am 2012 12:58am Urine Occult Blood NEGATIVE NEGATIVE 07/23/2013 12:30am 07/23/2013 12 :58am Urine pH 6.0 4.5-8.0 07/23/2013 12:30am 07/23/2013 12:58am Urine Protein NEGATIVE NEGATIVE 07/23/2013 12:30am 07/23/2013 12: 58am Urine Urobilinogen 0.2 E.U./dL 0.2-1.0 07/23/2013 12:30am 07/23/2013 12 :58am Urine Nitrate NEGATIVE NEGATIVE 07/23/2013 12:30am 07/23/2013 12: 58am Urine Leukocyte Esterase 1+ H NEGATIVE 07/23/2013 12:30am 07/23/2013 12:58am Urine RBC NONE /hpf NONE 07/23/2013 12:30am 07/23/2013 1:05am Urine WBC 10-25 /hpf H NONE 07/23/2013 12:30am 07/23/2013 1:05am THIS SPECIMEN MEETS MEDICAL STAFF CRITERIA FOR A URINE CULTURE. A CULTURE HAS BEEN SET. Urine WBC Clumps NONE /hpf NONE 07/23/2013 12:30am 07/23/2013 1:05am Urine Epithelial Cells MODERATE /lpf 07/23/2013 12:30am 07/23/2013 1: 05am Urine Bacteria 1+ /hpf H NONE 07/23/2013 12:30am 07/23/2013 1:05am Urine Human Chorionic Gonadotropin NEGATIVE NEGATIVE 07/23/2013 12: 30am 07/23/2013 12:59am Procedures No known history of procedures. Encounters Encounter Location Arrival/Admit Date Discharge/Depart Date Attending Provider Departed Emergency Room [facility] 02/02/16 11:44pm 12:26am DMITRY GUNN M.D. Registered Referred [facility] 01/30/15 11:50am RAH MONTE M.D. Departed Emergency Room [facility] 10/29/14 10:35am 11:51am BENJIE LOVELACE M.D. Departed Emergency Room [facility] 10/25/14 10:55pm 12:30am JAMES HERNANDEZ M.D. Departed Emergency Room [facility] 06/08/14 3:38am 4:15am OLIVER MAIN M.D. Registered Referred [facility] 02/12/14 6:55pm THIERRY RUBY DO Departed Emergency Room [facility] 02/08/14 1:06pm 2:06pm BENJIE LOVELACE M.D. Departed Emergency Room [facility] 02/07/14 12:37am 1:13am MARTÍN DORAN M.D. Discharged Recurring [facility] 01/25/14 1:18pm 03/14/14 11:59pm RAH MONTE M.D. Discharged Recurring [facility] 01/25/14 1:11pm 03/14/14 11:59pm RAH MONTE M.D. Departed Emergency Room [facility] 10/16/13 2:52pm 3:55pm OLIVER MAIN M.D. Departed Emergency Room [facility]. [facility] 10/13/13 7:32pm 8:03pm JAMES HERNANDEZ M.D. Departed Emergency Room [facility] 09/07/13 9:10am 9:38am OLIVER MAIN M.D. Departed Emergency Room [facility] 07/23/13 12:09am 1:28am BENJIE LOVELACE M.D. Recent Diagnosis
--- OUTSIDE RECORDS SUMMARY | 2018-06-29 20:05 | XMS REPORT | Continuity of Care Document ---
Author Author [facility] Organization [facility] Address Unknown Phone Unavailable Care Team Providers Care Margarine Maker Name Role Phone THIERRY RUBY DO PCP Insurance Providers Payer Name Policy Number Subscriber Name Relationship Providers Care Network [id number] Robert Sandoval 03 Father Problems Medical Problems Problem Onset Date Status Epigastric pain 04/28/2012 Active Nausea and vomiting 04/28/2012 Active Urinary tract infection Unknown Active Pharyngitis Unknown Active otalgia Unknown Active Conjunctivitis unspecified Unknown Active Bronchitis Unknown Active Shoulder pain Unknown Active Rotator cuff tendonitis Unknown Active Rotator cuff tendonitis Unknown Active [...] Discontinued Trazodone Hcl 150 Mg PO NEEDED 03/13/13 Active Phenazopyridine Hcl 100 Mg PO THREE [...] Plan of Care Discharge Date 02/08/14 2:06pm Instructions/Education Provided Rotator Cuff Tendinitis (ED) Prescriptions See Medications Section Follow-up Orders Gallbladder Sonogram Functional Status No functional status results. Allergies, [...] Source Date Result Interp. Ref. Range Comments 17-Hydroxyprogesterone March 04, 2011 7:27am See seperate report Alanine Aminotransferase (ALT/SGPT) March 16, 2013 12:15am 27 U/L N 5- 50 COMMENT: 10 Albumin March 16, 2013 12:15am 4.2 gm/dL N 3.2-5.0 COMMENT: 10 Albumin/Globulin Ratio March 16, 2013 12:15am 1.2 L 1.4-2.4 COMMENT: 10 Alkaline Phosphatase March 16, 2013 12:15am 50 U/L N 50-130 COMMENT: 10 Amylase Level December 23, 2009 8:20am 40 U/L N 37-127 Anion Gap March 16, 2013 12:15am 8.5 N 6-13 COMMENT: 10 Aspartate Amino Transf (AST/SGOT) March 16, 2013 12:15am 27 U/L N 5-55 COMMENT: 10 BUN/Creatinine Ratio March 16, 2013 12:15am 15.6 COMMENT: 10 Band Neutrophils April 21, 2009 1:25am 12.0 % H 0-7 COMMENTS ROOM 1 Basophils # (Auto) March 16, 2013 12:15am 0.0 K/uL N 0-0.2 COMMENT: 10 Basophils (%) (Auto) March 16, 2013 12:15am 0.2 % N 0-1 COMMENT: 10 Basophils (Manual) April 21, 2009 1:25am 0.0 % N 0-1 COMMENTS ROOM 1 Blood Urea Nitrogen March 16, 2013 12:15am 14 mg/dL N 8-25 COMMENT: 10 Calcium Level March 16, 2013 12:15am 8.8 mg/dL N 8.2-10.6 COMMENT: 10 Carbon Dioxide Level March 16, 2013 12:15am 28 mEq/L N 22-34 COMMENT: 10 Chlamydia DNA Probe March 16, 2013 2:55am See separate report COMMENT: 10 Chloride Level March 16, 2013 12:15am 103 mEq/L N 98-116 COMMENT: 10 Cholesterol Level March 04, 2011 7:27am 152 mg/dL N 120-230 Creatinine March 16, 2013 12:15am 0.90 mg/dL DN 0.9-1.6 COMMENT: 10 Direct Bilirubin May 18, 2012 12:00am 0.1 mg/dL N 0-0.4 Eosinophils # (Auto) March 16, 2013 12:15am 0.1 K/uL N 0-0.8 COMMENT: 10 Eosinophils (%) (Auto) March 16, 2013 12:15am 1.2 % N 0-7.0 COMMENT: 10 Eosinophils (Manual) April 21, 2009 1:25am 0.0 % L 2.0-12.0 COMMENTS ROOM 1 Erythrocyte Sedimentation Rate April 27, 2012 2:26pm 5 mm/hr N 0-[address] SURENDRA WHEELER Globulin March 16, 2013 12:15am 3.4 gm/dL H 2.0-3.0 COMMENT: 10 HDL Cholesterol March 04, 2011 7:27am 39 mg/dL N 35-84 Helicobacter pylori Antibodies April 27, 2012 2:26pm See separate report CALL REPORT TO DR SURENDRA WHEELER Hematocrit March 16, 2013 12:15am 43.6 % N 38.0-47.0 COMMENT: 10 Hemoglobin March 16, 2013 12:15am 14.8 g/dL N 12.0-16.0 COMMENT: 10 Human Chorionic Gonadotropin, Qual May 18, 2012 7:05am Negative NEGATIVE Immature Blood Cells March 16, 2013 12:15am 0.1 K/uL N 0-0.4 COMMENT: 10 Indirect Bilirubin May 18, 2012 12:00am 0.4 mg/dL N 0.1-0.8 LDL Cholesterol March 04, 2011 7:27am 105 mg/dL N 50-170 Lipase March 16, 2013 12:15am 22 U/L N 8-57 COMMENT: 10 Lymphocytes # (Auto) March 16, 2013 12:15am 2.5 K/uL N 0.9-5.2 COMMENT : 10 Lymphocytes (%) (Auto) March 16, 2013 12:15am 26.7 % N 16.0-44.0 COMMENT: 10 Lymphocytes (Manual) April 21, 2009 1:25am 10.0 % L 18.0-53.0 COMMENTS ROOM 1 Mean Corpuscular Hemoglobin March 16, 2013 12:15am 30.8 pg N 26.0-33.0 COMMENT: 10 Mean Corpuscular Hemoglobin Concent March 16, 2013 12:15am 33.9 g/dL N 31.0-36.0 COMMENT: 10 Mean Corpuscular Volume March 16, 2013 12:15am 91.0 fL N 82.0-100.0 COMMENT: 10 Mean Platelet Volume March 16, 2013 12:15am 6.6 fL L 7.0-11.0 COMMENT : 10 Monocytes # (Auto) March 16, 2013 12:15am 0.6 K/uL N 0.16-1.0 COMMENT : 10 Monocytes (%) (Auto) March 16, 2013 12:15am 6.8 % N 2.0-9.0 COMMENT: 10 Monocytes (Manual) April 21, 2009 1:25am 3.0 % N 2.0-13.0 COMMENTS ROOM 1 Neisseria gonorrhoeae DNA Probe March 16, 2013 2:55am See separate report COMMENT: 10 Neutrophils April 21, 2009 1:25am 75.0 % H 36.0-73.5 COMMENTS ROOM 1 Neutrophils # (Auto) March 16, 2013 12:15am 6.0 K/uL N 1.9-8.0 COMMENT : 10 Neutrophils (%) (Auto) March 16, 2013 12:15am 63.6 % N 42.0-75.0 COMMENT: 10 Platelet Count March 16, 2013 12:15am 200 K/uL N 130-400 COMMENT: 10 Platelet Estimate April 21, 2009 1:25am Normal NORMAL COMMENTS ROOM 1 Potassium Level March 16, 2013 12:15am 3.5 mEq/L N 3.5-5.1 COMMENT: 10 Prolactin March 04, 2011 7:27am 12.49 ng/mL Prolactin Reference Ranges Male 2.64 - 13.13 ng/mL Female Premenopausal 3.34 - 26.72 ng/mL Postmenopausal 2.74 - 19.64 ng/mL Random Cortisol March 04, 2011 7:27am See separate report mcg/dL Random Glucose March 16, 2013 12:15am 87 mg/dL N 65-115 COMMENT: 10 Red Blood Cell Morphology April 21, 2009 1:25am Normal COMMENTS ROOM 1 Red Blood Count March 16, 2013 12:15am 4.80 M/uL N 4.20-5.40 COMMENT: 10 Red Cell Distribution Width March 16, 2013 12:15am 13.5 % N 11.5-14.5 COMMENT: 10 Sodium Level March 16, 2013 12:15am 136 mEq/L N 133-145 COMMENT: 10 Somatomedin-C March 04, 2011 7:27am See separate report Thyroid Stimulating Hormone (TSH) February 23, 2011 7:14am 3.20 uIU/ml N 0.34-5.60 Total Bilirubin March 16, 2013 12:15am 0.2 mg/dL N 0.1-1.3 COMMENT: 10 Total Protein March 16, 2013 12:15am 7.6 gm/dL N 6.1-8.2 COMMENT: 10 Triglycerides Level March 04, 2011 7:27am 40 mg/dL N 30-138 Urine Amorphous Sediment March 15, 2013 11:55pm 1+ COMMENT: 10SOURCE: URINE, CLEAN CATCH Urine Appearance July 23, 2013 12:30am Cloudy COMMENT: nLab to draw N If applicable:TELEPHONE/VERBAL order by (other than ) w SOURCE: URINE, CLEAN CATCH Urine Bacteria July 23, 2013 12:30am 1+ /hpf H NONE COMMENT: nLab to draw N If applicable:TELEPHONE/VERBAL order by (other than ) w SOURCE: URINE, CLEAN CATCH Urine Bilirubin July 23, 2013 12:30am Negative NEGATIVE COMMENT: nLab to draw N If applicable:TELEPHONE/VERBAL order by (other than ) w SOURCE: URINE, CLEAN CATCH Urine Casts March 15, 2013 11:55pm N /lpf NONE COMMENT: 10SOURCE: URINE, CLEAN CATCH Urine Color July 23, 2013 12:30am Yellow COMMENT: nLab to draw N If applicable:TELEPHONE/VERBAL order by (other than ) w SOURCE: URINE, CLEAN CATCH Urine Crystals March 15, 2013 11:55pm N /hpf NONE COMMENT: 10SOURCE : URINE, CLEAN CATCH Urine Epithelial Cells July 23, 2013 12:30am Moderate /lpf COMMENT: nLab to draw N If applicable:TELEPHONE/VERBAL order by (other than ) w SOURCE: URINE, CLEAN CATCH Urine Glucose (UA) July 23, 2013 12:30am Negative NEGATIVE COMMENT: nLab to draw N If applicable:TELEPHONE/VERBAL order by (other than ) w SOURCE: URINE, CLEAN CATCH Urine Human Chorionic Gonadotropin July 23, 2013 12:30am Negative NEGATIVE COMMENT: nLab to draw N If applicable:TELEPHONE/VERBAL order by (other than ) w Urine Ketones July 23, 2013 12:30am Negative NEGATIVE COMMENT: nLab to draw N If applicable:TELEPHONE/VERBAL order by (other than ) w SOURCE: URINE, CLEAN CATCH Urine Leukocyte Esterase July 23, 2013 12:30am 1+ H NEGATIVE COMMENT: nLab to draw N If applicable:TELEPHONE/VERBAL order by (other than ) w SOURCE: URINE, CLEAN CATCH Urine Mucus March 15, 2013 11:55pm N /lpf NONE COMMENT: 10SOURCE: URINE, CLEAN CATCH Urine Nitrate July 23, 2013 12:30am Negative NEGATIVE COMMENT: nLab to draw N If applicable:TELEPHONE/VERBAL order by (other than ) w SOURCE: URINE, CLEAN CATCH Urine Occult Blood July 23, 2013 12:30am Negative NEGATIVE COMMENT: nLab to draw N If applicable:TELEPHONE/VERBAL order by (other than ) w SOURCE: URINE, CLEAN CATCH Urine Other March 15, 2013 11:55pm N COMMENT: 10SOURCE: URINE, CLEAN CATCH Urine Protein July 23, 2013 12:30am Negative NEGATIVE COMMENT: nLab to draw N If applicable:TELEPHONE/VERBAL order by (other than ) w SOURCE: URINE, CLEAN CATCH Urine RBC July 23, 2013 12:30am None /hpf NONE COMMENT: nLab to draw N If applicable:TELEPHONE/VERBAL order by (other than ) w SOURCE: URINE, CLEAN CATCH Urine Specific [place] July 23, 2013 12:30am 1.025 1.005-1.030 COMMENT: nLab to draw N If applicable:TELEPHONE/VERBAL order by (other than ) w SOURCE: URINE, CLEAN CATCH Urine Urobilinogen July 23, 2013 12:30am 0.2 E.U./dL 0.2-1.0 COMMENT: nLab to draw N If applicable:TELEPHONE/VERBAL order by (other than ) w SOURCE: URINE, CLEAN CATCH Urine WBC July 23, 2013 12:30am 10-25 /hpf H NONE THIS SPECIMEN MEETS MEDICAL STAFF CRITERIAFOR A URINE CULTURE. A CULTURE HAS BEEN SET. Urine WBC Clumps July 23, 2013 12:30am None /hpf NONE COMMENT: nLab to draw N If applicable:TELEPHONE/VERBAL order by (other than ) w SOURCE: URINE, CLEAN CATCH Urine pH July 23, 2013 12:30am 6.0 4.5-8.0 COMMENT: nLab to draw N If applicable:TELEPHONE/VERBAL order by (other than ) w SOURCE: URINE, CLEAN CATCH VLDL Cholesterol March 04, 2011 7:27am 8.0 N 5-40 White Blood Count March 16, 2013 12:15am 9.4 K/uL N 5.0-10.0 COMMENT: 10 Lab Scanned Report March 19, 2013 4:29pm REFERENCE LAB REPORT [id number] Testosterone Level February 23, 2011 7:14am 0.75 ng/mL N 0.1-0.75 Glomerular Filtration Rate Calc March 16, 2013 12:15am > 60.00 mL/min MULTIPLY RESULT BY 1.210 IF THE PATIENT IS -AMERICANUnits are mL/min /1.73 m2 > 60 Normal kidney function 30-59 Moderately decreased kidney function 15-29 Severely decreased kidney function <15 End-stage kidney failure Vaginitis Screen Culture Cervix March 16, 2013 2:55am Group A Streptococcus Screen (SUZANNA) Throat March 07, 2013 7:38pm Urine Culture Urine,Clean Catch July 23, 2013 12:30am Procedures Procedure Status Date Provider(s) THER/PROPH/DIAG IV INF INIT completed 03/15/13 BENJIE LOVELACE M.D. TX/PRO/DX INJ NEW DRUG ADDON completed 03/15/13 BENJIE LOVELACE M.D. Encounters Encounter Location Date/Time Departed Emergency Room [facility] 02/08/14 1:06pm Departed Emergency Room [facility] 02/07/14 12:37am Discharged Recurring [facility] 01/28/14 3:07pm Discharged Recurring [facility] 01/28/14 3:07pm Departed Emergency Room [facility] 10/16/13 2:52pm Departed Emergency Room [facility] 10/13/13 7:32pm Departed Emergency Room [facility] 09/07/13 9:10am Departed Emergency Room [facility] 07/23/13 12:09am Departed Emergency Room [facility] 03/15/13 11:36pm
--- OUTSIDE RECORDS SUMMARY | 2018-06-29 20:05 | XMS REPORT | Continuity of Care Document ---
Author Author [facility] Organization [facility] Address Unknown Phone Unavailable Care Team Providers Care Sack Sewer Name Role Phone THIERRY RUBY DO PCP Insurance Providers Payer Name Policy Number Subscriber Name Relationship Providers Care Network [id number] GatoRobert mathur 03 Father Chief Complaint and Reason for Visit Chief Complaint Toe Pain Reason for Visit [id number] Problems Medical Problems Problem Onset Date Status Epigastric pain 04/28/2012 Active Nausea and vomiting 04/28/2012 Active Urinary tract infection Unknown Active Pharyngitis Unknown Active otalgia Unknown Active Conjunctivitis unspecified Unknown Active Bronchitis Unknown Active Shoulder pain Unknown Active Rotator cuff tendonitis Unknown Active Rotator cuff tendonitis Unknown Active Ingrown left big toenail Unknown Active Medications Medication Dose Route Sig [...] TIMES A DAY 3 Days 07/23/13 Discontinued Promethazine/Codeine 5-10 Ml PO Every 6 hours as needed 3 Days 10/20/13 Discontinued Metformin Hcl 500 Mg PO TWICE A DAY 02/07/14 Active Meloxicam 15 Mg PO DAILY 06/08/14 Active Cephalexin 500 Mg PO THREE TIMES A DAY For . 30 Qty 06/08/14 Active Hydrocodone-Acetaminophen 1 Tab PO Every 6 hours as needed For Pain 12 Qty 06/08/14 Active Social History Social History Problem Response Recorded Date/Time Hx Alcohol Use No 05/17/2012 1:43pm Hx Substance Use No 05/17/2012 1:43pm Smoking Status Never smoker 06/08/2014 3:41am Query Response Start Date Stop Date Smoking Status Never smoker Hospital Discharge Instructions No hospital discharge instructions. Plan of Care Discharge Date 06/08/14 4:15am Disposition 01 HOME, SELF-CARE Condition at Discharge Stable Instructions/Education Provided Ingrown Nail (ED) Partial Nail Avulsion for Ingrown Nail (DC) Forms Provided Work Release Prescriptions See Medications Section Follow-up Orders Gallbladder Sonogram Referrals THIERRY RUBY DO Functional Status No functional status results. Allergies, Adverse Reactions, Alerts Allergen Type Severity Reaction Status Last Updated No Known Allergies Active 02/07/14 Immunizations No immunization records. Vital Signs Acute Vital Signs Vital Response Date/Time Blood Pressure 131/85 mm Hg Blood Pressure Mean 100 mm Hg Temperature (Fahrenheit) 98.2 degrees F (96.0 - 99.9) Temperature (Calculated Celsius) 36.92290 degrees C Temperature Source Oral Pulse Pulse Rate: ED 94 bpm Respiratory Rate 16 breaths per minute (10 - 20) Height (Feet) 5 ft Height (Inches) 7 in. Weight (Pounds) 240 lbs Ambulatory Vital Signs Vital Response Date/Time Height [...] w SOURCE: URINE, CLEAN CATCH Urine Specific [place] July 23, 2013 12:30am 1.025 1.005-1.030 COMMENT: [...] March 19, 2013 4:29pm REFERENCE LAB REPORT [id number] Testosterone Level February 23, 2011 7:14am 0.75 [...] Urine,Clean Catch July 23, 2013 12:30am Procedures No known history of procedures. Encounters Encounter Location Date/Time Departed Emergency Room [facility] 06/08/14 3:38am Departed Emergency Room [facility] 02/08/14 1:06pm Departed Emergency Room [facility] 02/07/14 12:37am Discharged Recurring [facility] 01/25/14 1:18pm Discharged Recurring [facility] 01/25/14 1:11pm Departed Emergency Room [facility] 10/16/13 2:52pm Departed Emergency Room [facility] 10/13/13 7:32pm Departed Emergency Room [facility] 09/07/13 9:10am Departed Emergency Room [facility] 07/23/13 12:09am Recent Diagnosis
--- OUTSIDE RECORDS SUMMARY | 2018-06-29 20:06 | XMS REPORT | Continuity of Care Document ---
Author Author [facility] Organization [facility] Address Unknown Phone Unavailable Care Team Providers Care Paper Products Supervisor Name Role Phone THIERRY RUBY DO PCP Insurance Providers Payer Name Policy Number Subscriber Name Relationship Providers Care Network [id number] GatoRobert mathur 03 Father Chief Complaint and Reason for Visit Chief Complaint Knee Injury Reason for Visit [id number] Problems Medical Problems Problem Onset Date Status Epigastric pain 04/28/2012 Active Nausea and vomiting 04/28/2012 Active Urinary tract infection Unknown Active Pharyngitis Unknown Active otalgia Unknown Active Conjunctivitis unspecified Unknown Active Bronchitis Unknown Active Shoulder pain Unknown Active Rotator cuff tendonitis Unknown Active Rotator cuff tendonitis Unknown Active Ingrown left big toenail Unknown Active Knee strain Unknown Active Medications Medication Dose Route Sig [...] PO DAILY 4 Days 09/20/11 04/28/12 Discontinued Levonorgestrel & Eth Estradiol 1 X PO [...] Meloxicam 15 Mg PO DAILY 06/08/14 Active Fexofenadine Hcl 180 Mg PO DAILY 10/25/14 Active Linaclotide PO DAILY 10/25/14 Active Naproxen 500 Mg PO TWICE A DAY For Not written in order 20 Qty Active Social History Social History Problem Response Recorded Date/Time Hx Alcohol Use No 05/17/2012 1:43pm Hx Substance Use No 05/17/2012 1:43pm Smoking Status Never smoker 10/25/2014 10:58pm Query Response Start Date Stop Date Smoking Status Never smoker Hospital Discharge Instructions No hospital discharge instructions. Plan of Care Discharge Date 10/26/14 12:30am Disposition 01 HOME, SELF-CARE Condition at Discharge Stable Instructions/Education Provided Knee Pain (ED) Prescriptions See Medications Section Follow-up Orders Gallbladder Sonogram Referrals THIERRY RUBY DO Functional Status No functional status results. Allergies, Adverse Reactions, Alerts Allergen Type Severity Reaction Status Last Updated No Known Allergies Active 02/07/14 Immunizations No immunization records. Vital Signs Acute Vital Signs Vital Response Date/Time Blood Pressure 128/67 mm Hg Blood Pressure Mean 87 mm Hg Temperature (Fahrenheit) 98.4 degrees F (96.0 - 99.9) Temperature (Calculated Celsius) 36.68661 degrees C Temperature Source Oral Pulse Pulse Rate: ED 103 bpm Respiratory Rate 18 breaths per minute (10 - 20) Height (Feet) 5 ft Height (Inches) 7 in. Weight (Pounds) 232 lbs Ambulatory Vital Signs Vital Response Date/Time [...] w SOURCE: URINE, CLEAN CATCH Urine Specific [place] July 23, 2013 12:30am 1.025 1.005-1.030 COMMENT: [...] March 19, 2013 4:29pm REFERENCE LAB REPORT [id number] Testosterone Level February 23, 2011 7:14am 0.75 [...] Encounters Encounter Location Date/Time Departed Emergency Room [facility] 10/25/14 10:55pm Departed Emergency Room [facility] 06/08/14 3:38am Departed Emergency Room [facility] 02/08/14 1:06pm Departed Emergency Room [facility] 02/07/14 12:37am Discharged Recurring [facility] 01/25/14 1:18pm Discharged Recurring [facility] 01/25/14 1:11pm Recent Diagnosis
--- OUTSIDE RECORDS SUMMARY | 2018-06-29 20:06 | XMS REPORT | Continuity of Care Document ---
Author Author [facility] Organization [facility] Address Unknown Phone Unavailable Care Team Providers Care Steel Loader Name Role Phone THIERRY RUBY DO PCP Insurance Providers Payer Name Policy Number Subscriber Name Relationship Providers Care Network [id number] Robert Sandoval 03 Father Problems Medical Problems [...] w SOURCE: URINE, CLEAN CATCH Urine Specific [place] July 23, 2013 12:30am 1.025 1.005-1.030 COMMENT: [...] March 19, 2013 4:29pm REFERENCE LAB REPORT [id number] Testosterone Level February 23, 2011 7:14am 0.75 [...] Encounters Encounter Location Date/Time Departed Emergency Room [facility] 02/08/14 1:06pm Departed Emergency Room [facility] 02/07/14 12:37am Discharged Recurring [facility] 01/28/14 3:07pm Discharged Recurring [facility] 01/28/14 3:07pm Departed Emergency Room [facility] 10/16/13 2:52pm Departed Emergency Room [facility] 10/13/13 7:32pm Departed Emergency Room [facility] 09/07/13 9:10am Departed Emergency Room [facility] 07/23/13 12:09am Departed Emergency Room [facility] 03/15/13 11:36pm
--- OUTSIDE RECORDS SUMMARY | 2018-06-29 20:06 | XMS REPORT | Continuity of Care Document ---
Author Author [facility] Organization [facility] Address Unknown Phone Unavailable Care Team Providers Care Rivet Maker Name Role Phone THIERRY RUBY DO PCP Insurance Providers Payer Name Policy Number Subscriber Name Relationship Providers Care Network [id number] GatoRobert 03 Father Chief Complaint and Reason for Visit Chief Complaint Shoulder Pain Reason for Visit Shoulder pain Problems Medical Problems Problem Onset Date Status Epigastric pain 04/28/2012 Active Nausea and vomiting 04/28/2012 Active Urinary tract infection Unknown Active Pharyngitis Unknown Active otalgia Unknown Active Conjunctivitis unspecified Unknown Active Bronchitis Unknown Active Shoulder pain Unknown Active Medications Medication Dose Route Sig [...] TIMES A DAY 10 Qty 02/07/14 Active Social History Social History Problem Response Recorded Date/Time Hx Alcohol Use No 05/17/2012 1:43pm Hx Substance Use No 05/17/2012 1:43pm Smoking Status Never smoker 02/07/2014 12:42am Query Response Start Date Stop Date Smoking Status Never smoker Hospital Discharge Instructions No hospital discharge instructions. Plan of Care Discharge Date 02/07/14 1:13am Disposition 01 HOME, SELF-CARE Condition at Discharge Stable Instructions/Education Provided Shoulder Sprain (ED) Forms Provided Work Release Prescriptions See Medications Section Follow-up Orders Gallbladder Sonogram Referrals THIERRY RUBY DO Functional Status No functional status results. Allergies, Adverse Reactions, Alerts Allergen Type Severity Reaction Status Last Updated No Known Allergies Active 02/07/14 Immunizations No immunization records. Vital Signs Acute Vital Signs Vital Response Date/Time Blood Pressure 149/95 mm Hg 02/07/2014 1:11am Blood Pressure Mean 113 mm Hg 02/07/2014 1:11am Pulse 02/07/2014 1:11am Pulse Rate: ED 100 bpm 02/07/2014 1:11am Respiratory Rate 18 breaths per minute (10 - 20) 02/07/2014 1:11am Ambulatory Vital Signs Vital Response Date/Time Height [...] Room [facility] 02/07/14 12:37am Registered Recurring [facility] 01/28/14 3:07pm Registered Recurring [facility] 01/28/14 3:07pm Departed Emergency Room [facility] 10/16/13 2:52pm Departed Emergency Room [facility] 10/13/13 7:32pm Departed Emergency Room [facility] 09/07/13 9:10am Departed Emergency Room [facility] 07/23/13 12:09am Departed Emergency Room [facility] 03/15/13 11:36pm Departed Emergency Room [facility] 03/14/13 12:58am Departed Emergency Room [facility] 03/13/13 4:24am Recent Diagnosis
--- OUTSIDE RECORDS SUMMARY | 2018-06-29 20:06 | XMS REPORT | Continuity of Care Document ---
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 Name Role Phone THIERRY RUBY DO PCP Insurance Providers Payer Name Policy Number Subscriber Name Relationship Providers Care Network [id number] [employer] mathur 03 Father Chief Complaint and Reason for Visit Chief Complaint Knee Pain Reason for Visit Chronic pain of left knee [id number] Problems Medical Problems Problem Onset Date Status Epigastric pain 04/28/2012 Active Nausea and vomiting 04/28/2012 Active Urinary tract infection Unknown Active Pharyngitis Unknown Active otalgia Unknown Active Conjunctivitis unspecified Unknown Active Bronchitis Unknown Active Shoulder pain Unknown Active Rotator cuff tendonitis Unknown Active Rotator cuff tendonitis Unknown Active Ingrown left big toenail Unknown Active Knee strain Unknown Active Chronic pain of left knee Unknown Active Left knee sprain Unknown Active Medications Medication Dose Route Sig [...] Not written in order 20 Qty Active Diclofenac Sodium 75 Mg PO TWICE A DAY PRN PAIN 30 Qty 10/29/14 Active Tramadol Hcl 50 Mg PO Every 6 hours as needed PRN PAIN 15 Qty 10/29/14 Active Social History Social History Problem Response Recorded Date/Time Hx Alcohol Use No 05/17/2012 1:43pm Hx Substance Use No 05/17/2012 1:43pm Smoking Status Never smoker 10/29/2014 10:47am Query Response Start Date Stop Date Smoking Status Never smoker Hospital Discharge Instructions No hospital discharge instructions. Plan of Care Discharge Date 10/29/14 11:51am Disposition 01 HOME, SELF-CARE Condition at Discharge Stable Instructions/Education Provided Knee Sprain (ED) Prescriptions See Medications Section Follow-up Orders Gallbladder Sonogram Referrals THIERRY RUBY DO Additional Instructions/Education Use Voltaren for mild pain. Stop Meloxicam if you are using Voltaren. May use Tramadol for breakthrough pain. Use knee brace and crutches you already have as needed. Follow up with Dr. Sheppard this week. Functional Status No functional status results. Allergies, Adverse Reactions, Alerts Allergen Type Severity Reaction Status Last Updated No Known Allergies Active 02/07/14 Immunizations No immunization records. Vital Signs Acute Vital Signs Vital Response Date/Time Blood Pressure 116/71 mm Hg Blood Pressure Mean 86 mm Hg Temperature (Fahrenheit) 97.9 degrees F (96.0 - 99.9) Temperature (Calculated Celsius) 36.80396 degrees C Temperature Source Oral Pulse Pulse Rate: ED 86 bpm Respiratory Rate 16 breaths per minute (10 - 20) Height (Feet) 5 ft Height (Inches) 7.3 in. Weight (Pounds) 240 lbs Ambulatory Vital [...] w SOURCE: URINE, CLEAN CATCH Urine Specific [place] July 23, 2013 12:30am 1.025 1.005-1.030 COMMENT: [...] March 19, 2013 4:29pm REFERENCE LAB REPORT [id number] Testosterone Level February 23, 2011 7:14am 0.75 [...] Encounters Encounter Location Date/Time Departed Emergency Room [facility] 10/29/14 10:35am Departed Emergency Room [facility] 10/25/14 10:55pm Departed Emergency Room [facility] 06/08/14 3:38am Departed Emergency Room [facility] 02/08/14 1:06pm Departed Emergency Room [facility] 02/07/14 12:37am Discharged Recurring [facility] 01/25/14 1:18pm Discharged Recurring [facility] 01/25/14 1:11pm Recent Diagnosis
[2018-06-29 20:31] VITALS: BP 140/99
== END 2018-06-29 20:31 | disposition home or self-care (01) ==
LOC: ER 19:02
DX: J02.9 Acute pharyngitis, unspecified (principal)
CPT/HCPCS: 87430; 87804